=== PATIENT | male | born 1940 | race Caucasian/White ===

== ENCOUNTER 2017-11-08 18:51 | Emergency (ER) | payer OTHER ==
[2017-11-08 19:06] VITALS: BP 148/81
--- NOTE | 2017-11-08 20:16 | UC ---
Skin Complaint HPI - History of Current Complaint Chief Complaint: UCAllergicReaction Time Seen by Provider: 11/08/17 20:09 Stated Complaint: BEE STING Pain Intensity: 3 - Allergy/Home Medications Allergies/Adverse Reactions: Allergies Allergy/AdvReac Type Severity Reaction Status Date / Time Penicillins Allergy Unknown Verified 11/08/17 19:07 Reaction Details Home Medications: Home Medications Carbidopa-Levodopa 25-100 Tab 25 mg PO TID 11/08/17 [History Confirmed 11/08/17] PMH/Surg Hx/FS Hx/Imm Hx - Surgical History Surgical History: Yes Surgery Procedure, Year, and Place: 1946 - T&A, 10/2000 -thyroidectomy, 07/2004 - (right) ankle fx w/screws inserted - Social History Alcohol Use: None Substance Use Type: None Smoking Status (MU): Never Smoked Tobacco Have You Smoked in the Last Year: No Household Exposure Type: Cigarettes Physical Exam - Summary Physical Exam Summary: Vital Signs Reviewed: Yes General: well developed, well nourished male sitting in the examining table w/o any apparent distress. Eyes: Positive: Conjunctiva Clear - PERRLA, EOMI ENT: Positive: Normal ENT inspection, Hearing grossly normal, Pharynx normal, TMs normal Neck: Positive: Supple, Nontender, No Lymphadenopathy Respiratory: Positive: Chest nontender, Lungs clear, Normal breath sounds Cardiovascular: Positive: RRR, No Murmur, Pulses Normal Abdomen Description: Positive: Nontender, No Organomegaly, Soft. Negative: CVA Tenderness (R), CVA Tenderness (L) Bowel Sounds: Positive: Present Musculoskeletal: Positive: Strength Intact, ROM Intact, No Edema Neurological Exam: Normal Psychological Exam: Normal Skin: Positive: rashes - Medial aspect of the left medial malleolus w/ mild erythema and swelling w/ a central bee sting, mild tenderness on palpation. no swelling or drainage observed. FROM of LF ankle, sensation intact, capillary refill brisk, pulses WNL. Triage Information Reviewed: Yes Vital Signs: Initial Vital Signs Temp 98.4 F 11/08/17 19:01 Pulse 69 11/08/17 19:01 Resp 16 11/08/17 19:01 BP 148/81 11/08/17 19:01 Pulse Ox 98 11/08/17 19:01 Course/Dx - Diagnoses Provider Diagnoses: 1- left ankle swelling s/p bee sting. 2- Uncontrolled HTN Discharge - Discharge Plan Condition: Stable Disposition: HOME Prescriptions: diPHENhydraMINE PO* [Benadryl PO 25 MG TAB*] 25 mg PO TID PRN #15 tab PRN Reason: pruritus Hydrocortisone 2.5% CREAM(NF) 1 applic TOPICAL BID #1 tube predniSONE TAB* [Deltasone 20 MG TAB*] 20 mg PO DAILY #8 tab Patient Education Materials: Insect Bite or Sting (ED), Low-Sodium Diet (ED) Referrals: Ganesh Bender MD [Primary Care Provider] - 3 Days Additional Instructions: 1-Please Start taking Prednisone PO taper dose starting tomorrow. first loading dose given today at the clinic. 2- Please take Benadryl PO to alleviate itchiness. Avoid driving if you feel drowsy. Apply hydrocortisone topical cream as directed. Avoid exposure to the sun. 3-If symptoms do not improve or worsen please f/u with your PCP or Customer Loyalty Representative in 2-3 days for further evaluation and treatment. 4- If symptoms worsen and you develop SOB or difficulty breathing please go immediately to the Er for further management. 5-Your BP is elevated today. please decrease salt in your diet, monitor BP and if it continues to be elevated please f/u with your PCP for further management - Billing Disposition and Condition Condition: STABLE Disposition: Home
[2017-11-08] MEDS ORDERED: diPHENhydraMINE PO* 25 MG PO ONE (20:26)
[2017-11-08] MEDS ORDERED: predniSONE TAB* 20 MG PO ONE (20:26)
== END 2017-11-08 20:40 | disposition home or self-care (01) ==
LOC: UCEAST 18:51
DX: M25.472 Effusion, left ankle (principal); T63.441A Toxic effect of venom of bees, accidental (unintentional), initial encounter; Y92.9 Unspecified place or not applicable; I10 Essential (primary) hypertension; Z88.0 Allergy status to penicillin
CPT/HCPCS: 99212; A9270-GY; G0463; J7512

== ENCOUNTER 2021-04-20 07:02 | Observation (INO) ==
[2021-04-20 07:30] LABS: ABS Eosinophils 0.4 10^3/ul (0-0.6); ABS Lymphocytes 1.4 10^3/ul (1.0-4.8); ABS Monocytes 0.6 10^3/ul (0-0.8); ABS Neutrophils 3.1 10^3/ul (1.5-7.7); Eosinophil % 6.6 %; Hematocrit 42 % (42-52); Mean Corpuscular HGB Conc 34 g/dL (31-36); Mean Corpuscular Hemoglobin 31 pg (27-31); Mean Corpuscular Volume 93 fL (80-94); Mean Platelet Volume 7.7 fL (7.4-10.4); Nucleated Red Blood Cells % 0.1; Platelet Count 224 10^3/uL (150-450); Red Blood Count 4.49 10^6 /uL (4.18-5.48); Red Cell Distribution Width 13 % (10-15); White Blood Count 5.5 10^3/uL (3.5-10.8)
[2021-04-20 07:39] LABS: Activated Partial Thrombo Time 30.2 seconds (26.0-38.0); INR 1.09 (0.86-1.15)
[2021-04-20 07:44] LABS: Albumin 4.1 g/dL (3.2-5.2); Albumin/Globulin Ratio 1.7 (1-3); Calcium 8.9 mg/dL (8.6-10.3); Globulin 2.4 g/dL (2-4); Potassium 4.1 mmol/L (3.5-5.0); Total Bilirubin 0.4 mg/dL (0.2-1.0); Total Protein 6.5 g/dL (6.4-8.9); eGFR CKD-EPI 68.6 (>60)
[2021-04-20] MEDS ORDERED: Iohexol 350 (CONTRAST) 500 ML MDV IV ONE (07:54)
[2021-04-20] MEDS ORDERED: Nitroglycerin 0.3 mg TAB SL ONE (07:57)
[2021-04-20] MEDS ORDERED: Carbidopa/Levodop 25/100 MG TAB PO ONE (10:59)
[2021-04-20] MEDS: Carbidopa/Levodop 25/100 MG TAB PO SCH ×2 (15:11→20:53)
[2021-04-20 16:24] LABS: Troponin I 0.01 ng/mL (<0.03)
[2021-04-20 16:37] LABS: TSH Ultra Thyroid Stim Horm 1.94 mcIU/mL (0.34-5.60)
[2021-04-20 16:39] LABS: Free T4 1.25 ng/dL (0.61-1.12)
[2021-04-20] MEDS: Enoxaparin 40 MG/0.4 ML SYR SUBCUT SCH (17:09)
[2021-04-20] MEDS: CMC:Brimonidine P 0.15%(NF) OPH SOL 5 ML BTL BOTH EYES SCH (20:52)
[2021-04-20] MEDS: CMCS: Dorzolamide 2% OPTH (NF) 10 ML BTL BOTH EYES SCH (20:52)
[2021-04-21] MEDS: Aspirin EC 81 mg TAB.EC (enteric coated) PO SCH (08:19)
[2021-04-21] MEDS: Carbidopa/Levodop 25/100 MG TAB PO SCH ×3 (08:21→21:56)
[2021-04-21] MEDS: CMCS: Dorzolamide 2% OPTH (NF) 10 ML BTL BOTH EYES SCH ×2 (08:21→21:56)
[2021-04-21] MEDS: CMC:Brimonidine P 0.15%(NF) OPH SOL 5 ML BTL BOTH EYES SCH ×2 (08:22→21:55)
[2021-04-21] MEDS ORDERED: Regadenoson 0.4 MG/5 ML SYRINGE ONE (10:25)
[2021-04-21] MEDS ORDERED: Aminophylline 25 MG/ML VIAL ONE (10:28)
[2021-04-21] MEDS ORDERED: Lidocaine PATCH 5% PATCH TRANSDERM PRN (16:53)
[2021-04-21] MEDS: Enoxaparin 40 MG/0.4 ML SYR SUBCUT SCH (18:11)
[2021-04-21] MEDS ORDERED: Lidocaine Patch REMOVE NOTE PATCH OFF SCH (21:00)
[2021-04-22 08:09] VITALS: BP 152/57
[2021-04-22] MEDS: Carbidopa/Levodop 25/100 MG TAB PO SCH (09:37)
[2021-04-22] MEDS: CMCS: Dorzolamide 2% OPTH (NF) 10 ML BTL BOTH EYES SCH (09:40)
[2021-04-22] MEDS: Aspirin EC 81 mg TAB.EC (enteric coated) PO SCH (09:40)
[2021-04-22] MEDS: CMC:Brimonidine P 0.15%(NF) OPH SOL 5 ML BTL BOTH EYES SCH (09:41)
== END 2021-04-22 11:52 | disposition home or self-care (01) ==
LOC: ED 07:02 → EDHOLD 07:02 → MEDTELE 13:46
PROVIDERS: ADMIT Internal Medicine; ATTEND Internal Medicine